=== PATIENT | male | born 1960 | race Caucasian/White ===

== ENCOUNTER 2016-04-02 04:30 | Observation (INO) | payer MEDICAID, OTHER ==
[~2016-04-02] VITALS: Ht 182.9 cm; Wt 102.9 kg
[2016-04-02] VITALS (9 sets, daily range): BP systolic 151–165; BP diastolic 88–103; PULSE 65–85; RESP 16–18; TEMP 96.8–98.2; O2SAT 96–98
[~2016-04-02 04:30] MED LIST: CLON1 PO; TOPR50TA PO
[2016-04-02] MEDS ORDERED: IBUP-988 PO (04:58)
[2016-04-02] MEDS ORDERED: CLON1 PO ×2 (04:58)
--- NOTE | 2016-04-02 04:58 | RADHPO ---
EXAM DATE/TIME: 04/02/2016 04:44 [facility] COMPARISON: No previous studies available for comparison. INDICATIONS : Shortness of breath. MEDICAL HISTORY : Pneumonia. SURGICAL HISTORY : None. ENCOUNTER: Initial ACUITY: 1 day PAIN SCORE: 0/10 LOCATION: Bilateral chest FINDINGS: The heart size is normal. There is increased density at the right middle lobe region. The left lung i s clear. CONCLUSION: Right middle lobe consolidation or atelectasis. Amador Wilkerson MD on April 02, 2016 at 4:56 Board Certified Radiologist. This report was verified electronically.
[2016-04-02 05:03] LABS: CHLORIDE 105 MEQ/L (98-107); POTASSIUM 3.9 MEQ/L (3.5-5.1); SODIUM (NA) 141 MEQ/L (136-145)
[2016-04-02 05:06] LABS: ANION GAP 11 MEQ/L (5-15); BICARBONATE 24.7 MEQ/L (21.0-32.0)
[2016-04-02 05:07] LABS: BLOOD UREA NITROGEN 14 MG/DL (7-18)
[2016-04-02 05:10] LABS: GLOMERULAR FILTRATION RATE 70 ML/MIN (>89)
[2016-04-02 05:13] LABS: CREATINE KINASE 114 U/L (39-308)
[2016-04-02 05:18] LABS: AUTOMATED NEUTROPHIL # 3.8 TH/MM3 (1.8-7.7); BASOPHIL # 0.1 TH/MM3 (0-0.2); BASOPHIL % 0.7 % (0.0-2.0); EOSINOPHIL # 0.2 TH/MM3 (0-0.4); EOSINOPHIL % 2.9 % (0.0-4.0); HEMATOCRIT 47.3 % (39.0-51.0); HEMO FLAGS DIFF FINAL; LYMPH % 36.1 % (9.0-44.0); LYMPHOCYTE # 2.6 TH/MM3 (1.0-4.8); MEAN CELL VOLUME 84.8 FL (80.0-100.0); MEAN CORPUSCULAR HEMOGLOBIN 28.2 PG (27.0-34.0); MEAN CORPUSCULAR HGB CONC 33.3 % (32.0-36.0); MONO % 7.9 % (0.0-8.0); NEUT % 52.4 % (16.0-70.0); PLATELET COUNT 253 TH/MM3 (150-450); RED BLOOD COUNT 5.58 MIL/MM3 (4.50-5.90); RED CELL DISTRIBUTION WIDTH 12.8 % (11.6-17.2); WHITE BLOOD COUNT 7.3 TH/MM3 (4.0-11.0)
--- NOTE | 2016-04-02 05:23 | PD ---
HPI Chief Complaint: Chest Pain Time Seen by Provider: 05:08 Travel History International Travel<30 days: No Contact w/Intl Traveler<30days: No Traveled to known affect area: No History of Present Illness HPI The patient is a 56-year-old male with no known history of heart disease who complains of a vague discomfort, a shortness of breath feeling across his chest lasting as long as 45 minutes yesterday. He has had this feeling for 2 days. He has not had any of this feeling tonight. He states he does get she age and weight but he is an anxious person. He does get diaphoretic but no nausea. No radiation of pain. He does have a history of heart disease at an early age and his family, his brother has heart disease in his mid 50s. He denies any history of elevated cholesterol or diabetes. He does have a history of hypertension. He does not smoke. He has not had a stress test in about 15 years. He states he cannot do the treadmill. He denies any fever or cough. PFS Past Medical History Anxiety: Yes Diminished Hearing: No Hypertension: Yes Respiratory: Yes (H/O PNEUMONIA) Immunizations Current: Yes ?: Not Social History Alcohol Use: No Tobacco Use: No Substance Use: No Allergies-Medications (Allergen,Severity, Reaction): Coded Allergies: Catapres (Verified Allergy, Severe, "ELEVATED BLOOD PRESSURE", 06/14/13) Levaquin (Verified Allergy, Severe, HIVES, 06/14/13) Penicillin (Verified Allergy, Severe, HIVES, 06/14/13) Reported Meds & Prescriptions Reported Meds & Active Scripts Active Reported Advil (Ibuprofen) 200 Mg Tab 200 Mg PO ONCE Klonopin (Clonazepam) 1 Mg Tab 1 Mg PO BID Review of Systems Except as stated in HPI: all other systems reviewed are Neg Physical Exam Narrative GENERAL: The patient is alert, oriented 3 in no apparent distress. His blood pressure is 165/97 and repeat is 152/92. The rest the vital signs are normal. SKIN: Warm and dry. HEAD: Atraumatic. Normocephalic. EYES: Pupils equal and round. No scleral icterus. No injection or drainage. ENT: No nasal bleeding or discharge. Mucous membranes pink and moist. NECK: Trachea midline. No JVD. CARDIOVASCULAR: Regular rate and rhythm. No murmur appreciated. I cannot reproduce the patient's chest pain by pressing on the chest wall. RESPIRATORY: No accessory muscle use. Clear to auscultation. Breath sounds equal bilaterally. GASTROINTESTINAL: Abdomen soft, non-tender, nondistended. Hepatic and splenic margins not palpable. No guarding or rebound is present. MUSCULOSKELETAL: No obvious deformities. No clubbing. No cyanosis. No edema. NEUROLOGICAL: Awake and alert. No obvious cranial nerve deficits. Motor grossly within normal limits. Normal speech. PSYCHIATRIC: Appropriate mood and affect; insight and judgment normal. Data Data Last Documented VS Vital Signs Date Time Temp Pulse Resp B/P Pulse Ox O2 Delivery O2 Flow Rate FiO2 04/02/16 05:44 98 Nasal Cannula 2 04/02/16 05:44 74 16 165/88 04/02/16 04:37 98.2 Orders Electrocardiogram (04/02/16 04:35) Complete Blood Count With Diff (04/02/16 04:35) Basic Metabolic Panel (Bmp) (04/02/16 04:35) Ckmb (Isoenzyme) Profile (04/02/16 04:35) Troponin I (04/02/16 04:35) Iv Access Insert/Monitor (04/02/16 04:35) Ecg Monitoring (04/02/16 04:35) Oxygen Administration (04/02/16 04:35) Oximetry (04/02/16 04:35) Chest, Pa & Lat (04/02/16 ) CKMB (04/02/16 04:40) CKMB% (04/02/16 04:40) Labs Laboratory Tests Test 04/02/16 04:40 White Blood Count 7.3 TH/MM3 Red Blood Count 5.58 MIL/MM3 Hemoglobin 15.8 GM/DL Hematocrit 47.3 % Mean Corpuscular Volume 84.8 FL Mean Corpuscular Hemoglobin 28.2 PG Mean Corpuscular Hemoglobin 33.3 % Concent Red Cell Distribution Width 12.8 % Platelet Count 253 TH/MM3 Mean Platelet Volume 8.9 FL Neutrophils (%) (Auto) 52.4 % Lymphocytes (%) (Auto) 36.1 % Monocytes (%) (Auto) 7.9 % Eosinophils (%) (Auto) 2.9 % Basophils (%) (Auto) 0.7 % Neutrophils # (Auto) 3.8 TH/MM3 Lymphocytes # (Auto) 2.6 TH/MM3 Monocytes # (Auto) 0.6 TH/MM3 Eosinophils # (Auto) 0.2 TH/MM3 Basophils # (Auto) 0.1 TH/MM3 CBC Comment DIFF FINAL Differential Comment Sodium Level 141 MEQ/L Potassium Level 3.9 MEQ/L Chloride Level 105 MEQ/L Carbon Dioxide Level 24.7 MEQ/L Anion Gap 11 MEQ/L Blood Urea Nitrogen 14 MG/DL Creatinine 1.10 MG/DL Estimat Glomerular Filtration 70 ML/MIN Rate Random Glucose 99 MG/DL Calcium Level 8.7 MG/DL Total Creatine Kinase 114 U/L Creatine Kinase MB 5.1 NG/ML Troponin I LESS THAN 0.02 NG/ML MDM Medical Decision Making Medical Screen Exam Complete: Yes Emergency Medical Condition: Yes Medical Record Reviewed: Yes Interpretation(s) EKG is normal with normal sinus rhythm rate of 81. The chest x-ray shows right middle lobe consolidation or atelectasis. The patient likely has atelectasis, he has no fever or cough. The basic metabolic are of 70 but is otherwise normal. The cardiac enzymes are normal except for a CK-MB of 5.1. Differential Diagnosis Chest pain etiology undetermined, esophageal pain, pleuritic pain, chest wall pain, gastrointestinal pain, pulmonary embolusunlikely Narrative Course The patient has chest pain etiology undetermined. The total CK is normal and the troponin I is normal. The patient likely has atelectasis, he has no cough or fever. Also, the EKG is completely normal. Plan: The patient will be admitted to the chest pain center. Physician Communication Physician Communication I discussed the patient with Dr. Hernandes, the patient will be admitted to the chest pain center. Diagnosis Primary Impression: Chest pain of unknown etiology Additional Impression: Atelectasis of right lung Rolando Sanford MD Apr 02, 2016 05:23
[2016-04-02 05:25] LABS: CKMB 5.1 NG/ML (0.5-3.6)
[2016-04-02] MEDS ORDERED: SODIUM CHLORIDE 0.9% FLUSH 5 ML FLUSH IVF PRN (06:00)
[2016-04-02] MEDS ORDERED: LORazepam 1 MG TAB PO ONE (06:45)
[2016-04-02] MEDS ORDERED: MORPHINE SULFATE 4 MG/ML INJ IV PRN (07:15)
[2016-04-02] MEDS ORDERED: ENALAPRILAT 1.25 MG/ML VIAL IV PUSH PRN (07:15)
[2016-04-02] MEDS ORDERED: ACETAMINOPHEN 500 MG CPLT PO PRN (07:15)
[2016-04-02] MEDS ORDERED: ACETAMINOPHEN/HYDROcodone 325 MG/7.5 MG TAB PO PRN (07:15)
[2016-04-02] MEDS ORDERED: NITROGLYCERIN 0.4 MG SL 25 TABS/BTL SL PRN (07:15)
[2016-04-02] MEDS ORDERED: ONDANSETRON HCL 4 MG/2 ML VIAL IV PRN (07:15)
[2016-04-02 08:27] LABS: CREATINE KINASE 96 U/L (39-308)
--- NOTE | 2016-04-02 08:33 | HHI.HP ---
[facility] Service [facility] Primary Care Physician Silvestre Cool MD Admission Diagnosis chest pain unknown etiology Diagnoses: (1) Chest pain Diagnosis: Principal (2) Atelectasis of right lung Diagnosis: Principal (3) HTN (hypertension) Diagnosis: Principal Chief Complaint: chest discomfort Travel History International Travel<30 Days: No Contact w/Intl Traveler <30 Da: No Traveled to Known Affected Are: No History of Present Illness 56-year-old male with history of anxiety, hypertension, and chronic gastrointestinal issues/possible IBS, and possible BPH presents with complaint of chest discomfort. He states that he started to experience discomfort "not pain" over the chest yesterday. He states it lasted 12-15 minutes. He cannot describe the quality or severity of the "discomfort". He states he took half a Klonopin pill which helped. Patient admits to always having a little shortness of breath with exertion. He states he had sweating last night and chills but he took his temperature and it was normal. Chest x-ray showed consolidation versus atelectasis over the right middle lobe, but patient denies any runny nose, congestion, earache, sore throat, or cough. He denies any pleuritic pain. He admits to wheezing chronically but denies any current smoking or lung disease and states he had PFTs performed 6 years ago when he had pneumonia which were normal. He states he has atelectasis/scarring in this area due to previous pneumonia. He admits to numbness once in awhile in the left hand but did not experience any of this yesterday. He additionally states he's had chronic headaches for months with a pressure over the entire head and had some photophobia associated with it recently, but denies any nausea or vomiting. States he had a headache yesterday. He states he took his blood pressure the day before yesterday at [facility] and it was 156/99 and he had some blurred vision at that time. Patient states he was taking metoprolol ER 50 mg daily but took himself off of the medication after he lost weight and his blood pressure improved. He also admits that he has been drinking 8-10 [place] per day over the past few months for no known reason but stopped 2 days ago. Denies any history of DVT or PE, hemoptysis, recent trauma or surgery, leg swelling, active cancer, or recent sedentary travel. Patient states he had a treadmill stress test 15 years ago but had difficult time walking. Review of Systems Constitutional: COMPLAINS OF: Chills, Night Sweats, DENIES: Fever Eyes: COMPLAINS OF: Blurred vision (day before yesterday) Ears, nose, mouth, throat: DENIES: Throat pain, Ear Pain, Running Nose Respiratory: COMPLAINS OF: Wheezing, DENIES: Cough, Hemoptysis Cardiovascular: COMPLAINS OF: Chest pain, Dyspnea on Exertion (chronic), DENIES: Lower Extremity Edema Gastrointestinal: DENIES: Abdominal pain, Diarrhea, Nausea, Vomiting Genitourinary: COMPLAINS OF: Urinary frequency (10 x per day chronic) Musculoskeletal: DENIES: Neck pain (no stiffness) Integumentary: DENIES: Rash Neurologic: COMPLAINS OF: Headache, DENIES: Paresthesias Psychiatric: COMPLAINS OF: Anxiety Except as stated in HPI: all other systems reviewed are Neg Past Family Social History Past Medical History Anxiety History of pneumonia HTN BPH Reported Medications Advil (Ibuprofen) 200 Mg Tab 200 Mg PO ONCE Klonopin (Clonazepam) 1 Mg Tab 1 Mg PO BID Allergies: Coded Allergies: Catapres (Verified Allergy, Severe, "ELEVATED BLOOD PRESSURE", 06/14/13) Levaquin (Verified Allergy, Severe, HIVES, 06/14/13) Penicillin (Verified Allergy, Severe, HIVES, 06/14/13) Family History Brother: Age 56; 2 cardiac stents recently placed. Mother: Colon cancer in her 60s, breast cancer, diabetes; still living. Father: Colon cancer, at age 64. Brother: Colon cancer Patient states he is overdue for colonoscopy due to insurance reasons; is addressing with PCP. Social History Patient has been sober from alcohol for 12 years. Patient used cocaine 20 years ago. Denies h/o IVDA. Quit smoking cigarettes 11 years ago. Physical Exam Vital Signs Vital Signs Date Time Temp Pulse Resp B/P Pulse Ox O2 Delivery O2 Flow Rate FiO2 04/02/16 07:50 65 18 151/91 97 Nasal Cannula 1 04/02/16 07:05 98 Nasal Cannula 2 04/02/16 07:05 98 Nasal Cannula 1 04/02/16 06:43 75 16 162/103 98 Nasal Cannula 04/02/16 06:06 98 Nasal Cannula 2.00 04/02/16 05:44 98 Nasal Cannula 2 04/02/16 05:44 74 16 165/88 98 Nasal Cannula 2 04/02/16 04:43 98 Nasal Cannula 2 04/02/16 04:43 98 Nasal Cannula 2 04/02/16 04:43 78 16 152/92 Nasal Cannula 2 04/02/16 04:37 98.2 85 165/97 97 Physical Exam GENERAL: This is a well-nourished, well-developed patient, in no apparent distress. SKIN: No rashes, ecchymoses or lesions. Warm and dry. HEAD: Atraumatic. Normocephalic. EYES: No scleral icterus. No injection or drainage. NECK: Full lateral ROM. CHEST: No reproducible chest wall tenderness. CARDIOVASCULAR: Regular rate and rhythm without murmurs, gallops, or rubs. RESPIRATORY: Clear to auscultation. Breath sounds equal bilaterally. No wheezes , rales, or rhonchi. GASTROINTESTINAL: Soft normoactive bowel sounds. Abdomen soft, nondistended. Admits to generalized tenderness which is chronic. No guarding. MUSCULOSKELETAL: No lower extremity edema bilaterally. NEUROLOGICAL: Awake and alert. Motor grossly within normal limits. Normal speech. Laboratory Laboratory Tests Test 04/02/16 04/02/16 04:40 07:50 White Blood Count 7.3 Red Blood Count 5.58 Hemoglobin 15.8 Hematocrit 47.3 Mean Corpuscular Volume 84.8 Mean Corpuscular Hemoglobin 28.2 Mean Corpuscular Hemoglobin 33.3 Concent Red Cell Distribution Width 12.8 Platelet Count 253 Mean Platelet Volume 8.9 Neutrophils (%) (Auto) 52.4 Lymphocytes (%) (Auto) 36.1 Monocytes (%) (Auto) 7.9 Eosinophils (%) (Auto) 2.9 Basophils (%) (Auto) 0.7 Neutrophils # (Auto) 3.8 Lymphocytes # (Auto) 2.6 Monocytes # (Auto) 0.6 Eosinophils # (Auto) 0.2 Basophils # (Auto) 0.1 CBC Comment DIFF FINAL Differential Comment Sodium Level 141 Potassium Level 3.9 Chloride Level 105 Carbon Dioxide Level 24.7 Anion Gap 11 Blood Urea Nitrogen 14 Creatinine 1.10 Estimat Glomerular Filtration 70 Rate Random Glucose 99 Calcium Level 8.7 Total Creatine Kinase 114 96 Creatine Kinase MB 5.1 Troponin I LESS THAN 0.02 LESS THAN 0.02 Result Diagram: 04/02/160 04/02/16 0440 Imaging Last Impressions Chest X-Ray 04/02/16 0000 Signed Impressions: Service Date/Time: , April 02, 2016 04:44 - CONCLUSION: Right middle lobe consolidation or atelectasis. Amador Wilkerson MD Assessment and Plan Assessment and Plan 56-year-old male with: Chest discomfort: Lasted 15-20 minutes yesterday; had relief with Klonopin. Chronic shortness of breath on exertion, likely deconditioned as patient states he had difficulty doing treadmill test even15 years ago; also could be related to weight gain patient admits to. EKGs 3 personally interpreted with sinus rhythm; T-wave inversion in lead 3 likely normal variant; flattened T waves in aVF, although voltage is also low. Troponin x 3 negative. Initial CK-MB is elevated at 5.1 but total CK x 3 is within normal limits; discussed with Dr. Wright. Chest x-ray personally interpreted, likely atelectasis rather than consolidation over the R lung as patient has not been recently ill and states this is chronic from prior pneumonia. CBC unremarkable. Afebrile. -Serial EKGs and enzymes -Nitro/Hurst/morphine prn pain -Telemetry -Daily 325 mg aspirin -UDS -Provided ACS ruled out, patient to undergo nuclear stress test; states he cannot do treadmill. HTN: Pressure persistently elevated in the 150s to 160s since arrival. Patient was previously on metoprolol but took himself off. -Patient has adverse reaction to Catapres. Enalapril IV as needed. -Monitor -Will likely need to restart patient on a blood pressure medication at discharge. Anxiety: Continue Klonopin Patient advised to address his chronic medical problems including headaches, bowel issues, and prostate issues with his primary care physician. GI prophylaxis: Protonix DVT prevention: SCDs. Myocardial perfusion scan with normal EF and no evidence of ischemia. Telemetry reviewed and normal. Patient's blood pressure has remained persistently elevated throughout the day in the 150s-160s which could be causing his chest pain and headaches. Patient advised to obtain a BP cuff and keep a log of blood pressures at home to report to his PCP. Discharge disposition: Home in stable condition. Diet: Heart healthy Activity: Regular Medications: Prescription for Lisinopril 10 mg po daily. Continue home medication. Follow up: PCP 1 week. Patient has appointment in April. Discussed Condition With patient, Claire Mendoza Apr 02, 2016 08:33
[2016-04-02] MEDS ORDERED: SODIUM CHLORIDE 0.9% FLUSH 5 ML FLUSH IVF SCH (09:00)
[2016-04-02] MEDS ORDERED: PANTOPRAZOLE SOD 40 MG DELAYED RELEASE TAB PO SCH (09:00)
[2016-04-02] MEDS ORDERED: ASPIRIN 325 MG TAB PO SCH (09:00)
[2016-04-02 11:05] LABS: CREATINE KINASE 85 U/L (39-308)
[2016-04-02] MEDS ORDERED: REGADENOSON INJ 0.4 MG/5 ML SYR IV ONE (14:07)
--- NOTE | 2016-04-02 15:05 | RADHPO ---
EXAM DATE/TIME: 04/02/2016 13:41 [facility] COMPARISON: No previous studies available for comparison. INDICATIONS : Mid chest pain for one day. Weakness and dizzy for three months. Unable to walk on treadmill. DOSE: 34.5 mCi Tc99m Myoview at stress. 10.8 mCi Tc99m Myoview at rest. 0.4 mg Lexiscan STRESS SYMPTOMS: Arms numb and shortness of breath. EJECTION FRACTION: 64% MEDICAL HISTORY : Hypertension. Irritable bowel syndrome. SURGICAL HISTORY : None. ENCOUNTER: Initial ACUITY: 1 day PAIN SCALE: 8/10 LOCATION: Midsternal chest TECHNIQUE: The patient underwent pharmacologic stress with infusion of prescribed dose. Continuous ECG tracing was monitored during stress. Gated SPECT imaging was performed after stress and conventional SPECT i maging was performed at rest. The examination was performed on a SPECT/CT scanner, both attenuation and non-corrected datasets were reviewed. FINDINGS: DISTRIBUTION: The maximum perfused segment at stress is in the septal wall. PERFUSION STUDY: The pattern of perfusion at stress is within normal limits. GATED STUDY: There is intact wall motion and thickening without hypokinetic or dyskinetic segments. CONCLUSION: Normal examination. RISK CATEGORY: Low (<1% Annual Mortality Rate) Amador Lopez MD on April 02, 2016 at 14:58 Board Certified Radiologist. This report was verified electronically.
[2016-04-02] MEDS ORDERED: LISI10TA3 PO (16:02)
--- NOTE | 2016-04-02 16:03 | HHI.DCPOC ---
Discharge Care Plan Diagnosis: (1) Chest pain (2) Atelectasis of right lung (3) HTN (hypertension) Your Health Problems Are: Chest Pain Goals to Promote Your Health * To prevent worsening of your condition and complications * To maintain your health at the optimal level Directions to Meet Your Goals Take your medications as prescribed Follow your dietary instruction Follow activity as directed Keep your appointments as scheduled Take your immunizations and boosters as scheduled If your symptoms worsen call your PCP, if no PCP go to Urgent Care Center or Emergency Room Smoking is Dangerous to Your Health. Avoid second hand smoke Call the 24-hour hour crisis hotline for domestic abuse at Claire Navarro Apr 02, 2016 16:03
--- NOTE | 2016-04-02 18:39 | EKG ---
Date Performed: 04/02/2016 Time Performed: 10:27:42 PTAGE: 56 years EKG: Sinus rhythm . Normal ECG PREVIOUS TRACING : 04/02/2016 07.53 Compared to prior tracing no significant change DOCTOR: Rich Duran Interpretating Date/Time 04/02/2016 18:38:31
--- NOTE | 2016-04-02 19:04 | EKG ---
Date Performed: 04/02/2016 Time Performed: 07:53:54 PTAGE: 56 years EKG: Sinus rhythm Nonspecific ST and T wave abnormalities PREVIOUS TRACING : 04/02/2016 04.33 Compared to prior tracing no significant change DOCTOR: Rich Duran Interpretating Date/Time 04/02/2016 19:02:41
--- NOTE | 2016-04-02 19:31 | EKG ---
Date Performed: 04/02/2016 Time Performed: 04:33:24 PTAGE: 56 years EKG: Sinus rhythm Normal ECG PREVIOUS TRACING : 06/14/2013 22.45 Compared to prior tracing no significant change DOCTOR: Rich Duran Interpretating Date/Time 04/02/2016 19:29:52
--- NOTE | 2016-04-02 19:45 | TR ---
Date Performed: 04/02/2016 Time Performed: 13:47:45 DOCTOR: Tracey Musa DRUG LIST: CLINICAL HISTORY: CHEST PAIN REASON FOR TEST: Chest pain WITH DIGOXIN REASON FOR ENDING: OBSERVATION: CONCLUSION: Lexiscan stress test was performed under standard four minute protocol. Radionuclid e was injected one minute prior to ending the test. Borderlinew ST changes for ischemia. Nuclear imag ing and interpretation are pending. COMMENTS:
[2016-04-02] MEDS ORDERED: clonazePAM 1 MG TAB PO SCH (21:00)
== END 2016-04-02 17:47 | disposition home or self-care (01) ==
LOC: PHED 04:30 → PHEDA 06:05 → PH3B 09:29
PROVIDERS: ADMIT Hospitalist; ATTEND Hospitalist
DX: J98.11 Atelectasis (principal); R06.02 Shortness of breath; R61 Generalized hyperhidrosis; I10 Essential (primary) hypertension; F41.9 Anxiety disorder, unspecified; R06.2 Wheezing; R51 Headache; H53.8 Other visual disturbances; Z87.01 Personal history of pneumonia (recurrent)
CPT/HCPCS: 71020; 78452; 80048; 82550; 82552; 84484; 85025; 93005; 93017; 99285; A9502; G0378; J2785

== ENCOUNTER 2016-04-03 11:34 | Emergency (ER) | payer MEDICAID, OTHER ==
[~2016-04-03] VITALS: Ht 182.9 cm; Wt 102.0 kg
[~2016-04-03 11:34] MED LIST changes: +IBUP-988 PO; +LISI10TA3 PO
[2016-04-03 12:03] VITALS: BP 177/102; PULSE 74; RESP 18; TEMP 97.5; O2SAT 100
--- NOTE | 2016-04-03 13:15 | PD ---
HPI Chief Complaint: Respiratory Symptoms Time Seen by Provider: 13:14 Travel History International Travel<30 days: No Contact w/Intl Traveler<30days: No Traveled to known affect area: No History of Present Illness HPI 56-year-old male came to the emergency room with history of difficulty breathing. Patient says that he was here yesterday and got a nuclear stress test done. Discharged home this morning. But when he woke up after a nap this afternoon he started getting short of breath. As he was talking to me he was breathing fast. Denies any chest pain. He says he had a chest x-ray done yesterday and was told that he has atelectasis. He has history of developing pneumonia and was concerned if he was starting to get pneumonia. No signs were stable otherwise. Patient was not hypoxic. [facility] Past Medical History Narrative Medical List of his past medical, social and family history is been reviewed from the nursing note. Anxiety: Yes Cancer: No Cardiovascular Problems: Yes Diminished Hearing: No Endocrine: No Genitourinary: No Hypertension: Yes Immune Disorder: No Musculoskeletal: No Neurologic: No Psychiatric: Yes Reproductive: No Respiratory: Yes (H/O PNEUMONIA) Immunizations Current: Yes Social History Alcohol Use: No Tobacco Use: No Substance Use: No Allergies-Medications (Allergen,Severity, Reaction): Coded Allergies: Catapres (Verified Allergy, Severe, "ELEVATED BLOOD PRESSURE", 04/03/16) Levaquin (Verified Allergy, Severe, HIVES, 04/03/16) Penicillin (Verified Allergy, Severe, HIVES, 04/03/16) Comments List of his allergies reviewed from the nursing note. Reported Meds & Prescriptions Reported Meds & Active Scripts Active Lisinopril 10 Mg Tab 10 Mg PO DAILY Reported Advil (Ibuprofen) 200 Mg Tab 200 Mg PO ONCE Klonopin (Clonazepam) 1 Mg Tab 1 Mg PO BID Narrative Medication List of his home medications reviewed from the nursing note. Review of Systems Except as stated in HPI: all other systems reviewed are Neg Physical Exam Narrative GENERAL: Awake, alert, anxious SKIN: Warm and dry. HEAD: Atraumatic. Normocephalic. EYES: Pupils equal and round. No scleral icterus. No injection or drainage. ENT: No nasal bleeding or discharge. Mucous membranes pink and moist. NECK: Trachea midline. No JVD. CARDIOVASCULAR: Regular rate and rhythm. No murmur appreciated. RESPIRATORY: No accessory muscle use. Tachypnea. Clear to auscultation. Breath sounds equal bilaterally. GASTROINTESTINAL: Abdomen soft, non-tender, nondistended. Hepatic and splenic margins not palpable. MUSCULOSKELETAL: No obvious deformities. No clubbing. No cyanosis. No edema. NEUROLOGICAL: Awake and alert. No obvious cranial nerve deficits. Motor grossly within normal limits. Normal speech. PSYCHIATRIC: Appropriate mood and affect; insight and judgment normal. Data Data Last Documented VS Orders Chest, Pa & Lat (04/03/16 ) B-Type Natriuretic Peptide (04/03/16 13:21) D-Dimer (04/03/16 13:21) Labs MDM Medical Decision Making Medical Screen Exam Complete: Yes Emergency Medical Condition: Yes Medical Record Reviewed: Yes Differential Diagnosis PE, anxiety, pneumonia Narrative Course 3:05 PM blood test results were back. I had ordered a BNP and a d-dimer since he had all the other labs done yesterday including cardiac workup. The lab results just came back and within normal limits. Chest x-ray was within normal limit. I will discharge the patient home. He feels reassured. Procedures EKG Prior to Arrival: No Diagnosis Primary Impression: Shortness of breath Additional Impression: Anxiety Referrals: Primary Care Physician 3 days Additional Instructions: Please return to the ER if the condition worsens or any other new concerns. Otherwise follow-up with your primary care. Med/Other Pt SpecificInfo: No Change to Meds Disposition: DISCHARGE HOME Condition: Alise Garcia MD Apr 03, 2016 13:15 Narrative Course 3:05 PM blood test results were back. I had ordered a BNP and a d-dimer since he had all the other labs done yesterday including cardiac workup. The lab results just came back and within normal limits. Chest x-ray was within normal limit. I will discharge the patient home. He feels reassured. Procedures EKG Prior to Arrival: No Diagnosis Primary Impression: Shortness of breath Additional Impression: Anxiety Referrals: Primary Care Physician 3 days Additional Instructions: Please return to the ER if the condition worsens or any other new concerns. Otherwise follow-up with your primary care. Med/Other Pt SpecificInfo: No Change to Meds Disposition: DISCHARGE HOME Condition: Alise Garcia MD Apr 03, 2016 13:15
--- NOTE | 2016-04-03 13:18 | RADHPO ---
EXAM DATE/TIME: 04/03/2016 12:40 [facility] COMPARISON: CHEST PA & LAT, April 02, 2016, 4:44. INDICATIONS : Short of breath. Chest pain. Patient was seen here yesterday. MEDICAL HISTORY : Hypertension. Irritable bowel syndrome. SURGICAL HISTORY : None. ENCOUNTER: [facility]ela ACUITY: 2 days PAIN SCORE: 7/10 LOCATION: chest FINDINGS: PA and lateral views of the chest demonstrate the lungs to be symmetrically aerated without evidence of mass, infiltrate or effusion. The cardiomediastinal contours are unremarkable. Osseous structure s are intact. CONCLUSION: No acute disease. Gokul Thorpe Jr., MD on April 03, 2016 at 13:15 Board Certified Radiologist. This report was verified electronically.
== END 2016-04-03 15:22 | disposition home or self-care (01) ==
LOC: PHED 11:34 → PHEFT 15:22
DX: R06.02 Shortness of breath (principal); F41.9 Anxiety disorder, unspecified; I10 Essential (primary) hypertension
CPT/HCPCS: 71020; 83880; 85379; 99283